=== PATIENT | male | born 1965 ===

== ENCOUNTER 2021-12-07 17:09 | Inpatient (IN) | payer MEDICARE, MEDICAID ==
[~2021-12-07] VITALS: Ht 177.8 cm; Wt 78.5 kg
[2021-12-07 19:08] LABS: COVID AG,FIA SOURCE NASOPHARYNGEAL
[2021-12-07 20:15] LABS: BASOPHILS % (AUTO) 0.6 % (0.0-2.0); EOSINOPHILS % (AUTO) 3.2 % (1.0-6.0); HEMATOCRIT 40.6 % (41-53); HEMOGLOBIN 12.8 g/dL (13.5-17.5); LYMPHOCYTES # (AUTO) 1.1 K/uL (1.0-4.8); LYMPHOCYTES % (AUTO) 13.5 % (22.0-44.0); MEAN CORPUSCULAR HEMOGLOBIN 21.1 pg (26.0-34.0); MEAN CORPUSCULAR HGB CONC 31.5 G/dL (31.0-37.0); MEAN CORPUSCULAR VOLUME 67 fL (80-100); MONOCYTES # (AUTO) 0.4 K/uL (0.1-1.0); MONOCYTES % (AUTO) 5.4 % (2.0-9.0); NEUTROPHILS # (AUTO) 6.1 K/uL (1.8-7.7); NEUTROPHILS % (AUTO) 77.3 % (40.0-70.0); PLATELET COUNT (AUTO) 338 K/uL (150-450); RED BLOOD CELL COUNT(AUTO) 6.06 MIL/uL (4.50-5.90)
[2021-12-07 20:24] LABS: ANION GAP 7 mmol/L (8-16); CALCIUM, TOTAL 8.7 mg/dL (8.8-10.5); CARBON DIOXIDE 28 mmol/L (22-29); CHLORIDE 102 mmol/L (98-107); CREATININE 0.75 mg/dL (0.60-1.30); GLUCOSE,RANDOM 83 mg/dL (70-110); POTASSIUM 3.7 mmol/L (3.5-5.1); SODIUM SERUM 137 mmol/L (136-145); UREA NITROGEN, BLOOD 20 mg/dL (7-18)
[2021-12-07 20:26] LABS: GLOMERULAR FILTR. RATE CALC > 60 mL/min (>60)
[2021-12-07 20:28] LABS: PLATELET MORPHOLOGY COMMENT LARGE PLTS PRESENT
[2021-12-07 20:32] LABS: ALANINE AMINOTRANSFERASE 57 U/L (12-78); ALKALINE PHOSPHATASE 58 U/L (46-116); ASPARTATE AMINOTRANSFERASE 40 U/L (15-37); BILIRUBIN,TOTAL 0.4 mg/dL (0.1-1.0); TOTAL PROTEIN, SERUM 7.4 g/dL (6.4-8.2)
[2021-12-07] MEDS ORDERED: ZOLPIDEM TARTRATE 10 MG TABLET PO PRN (21:30)
[2021-12-07 23:16] LABS: APPEARANCE,URINE CLEAR (CLEAR); BILIRUBIN,URINE NEGATIVE (NEGATIVE); GLUCOSE, URINE (UA) NEGATIVE (NEGATIVE); KETONES,URINE NEGATIVE (NEGATIVE); LEUKOCYTE ESTERASE ,URINE NEGATIVE (NEGATIVE); NITRATE,URINE NEGATIVE (NEGATIVE); OCCULT BLOOD,URINE NEGATIVE (NEGATIVE); PROTEIN,URINE NEGATIVE (NEGATIVE); SPECIFIC GRAVITIY, URINE 1.017 (1.003-1.030); UROBILINOGEN,URINE <=1.0 mg/dL (<=1.0)
[2021-12-07 23:23] LABS: AMPHET/METH SCREEN,URINE NEGATIVE (NEGATIVE); BARBITURATE SCREEN, URINE NEGATIVE (NEGATIVE); BENZODIAZEPINES SCREEN,URINE NEGATIVE (NEGATIVE); CANNABINOID SCREEN,URINE POSITIVE (NEGATIVE); COCAINE SCREEN,URINE NEGATIVE (NEGATIVE); METHADONE SCREEN, URINE NEGATIVE (NEGATIVE); OPIATE SCREEN,URINE NEGATIVE (NEGATIVE)
[2021-12-07 23:24] LABS: PHENCYCLIDINE SCREEN,URINE NEGATIVE (NEGATIVE)
[2021-12-08] MEDS: HALOPERIDOL 5 MG TABLET PO PRN ×2 (01:06→16:02)
[2021-12-08] MEDS: LORazepam 2 MG TABLET PO PRN (01:07)
[2021-12-08 02:09] VITALS: BP 136/79
[2021-12-08 08:19] VITALS: BP 97/58
[2021-12-08 16:34] VITALS: BP 99/71
[2021-12-08] MEDS: PALIPERIDONE 6 MG ER TABLET PO SCH (20:22)
[2021-12-08] MEDS ORDERED: PETROLATUM,WHITE 28 GM JELLY TP PRN (22:00)
[2021-12-08] MEDS ORDERED: BACITRACIN 28 GM OINTMENT TP PRN (22:00)
[2021-12-08] MEDS ORDERED: ACETAMINOPHEN 325 MG TABLET PO PRN (22:00)
[2021-12-08] MEDS ORDERED: MAG HYDROX/AL HYDROX/SIMETH ES 30 ML SUSPENSION UDCUP PO PRN (22:00)
[2021-12-08] MEDS ORDERED: BENZOCAINE/MENTHOL LOZENGE PO PRN (22:00)
[2021-12-08] MEDS ORDERED: MAGNESIUM HYDROXIDE SUSPENSION 30 ML UDCUP PO PRN (22:00)
[2021-12-08] MEDS ORDERED: CloNIDine HCL 0.1 MG TABLET PO PRN (22:00)
[2021-12-08] MEDS ORDERED: DOCUSATE SODIUM 100 MG CAPSULE PO PRN (22:00)
[2021-12-08] MEDS ORDERED: LOPERAMIDE HCL 2 MG CAPSULE PO PRN (22:00)
[2021-12-08] MEDS ORDERED: IBUPROFEN 600 MG TABLET PO PRN (22:00)
[2021-12-08] MEDS ORDERED: ONDANSETRON HCL 4 MG TABLET PO PRN (22:00)
[2021-12-08] MEDS ORDERED: ALBUTEROL SULFATE HFA 90 MCG/PUFF 8 GM INHALER IH PRN (22:00)
[2021-12-08] MEDS ORDERED: OMEPRAZOLE 20 MG CAPSULE PO PRN (22:00)
[2021-12-09 08:21] VITALS: BP 129/72
[2021-12-09] MEDS: HALOPERIDOL 5 MG TABLET PO PRN (14:10)
[2021-12-09] MEDS: LORazepam 2 MG TABLET PO PRN (14:11)
[2021-12-09 16:40] VITALS: BP 122/75
[2021-12-09] MEDS: PALIPERIDONE 6 MG ER TABLET PO SCH (20:23)
[2021-12-10 08:29] VITALS: BP 102/64
[2021-12-10] MEDS: HALOPERIDOL 5 MG TABLET PO PRN ×2 (13:07→20:15)
[2021-12-10] MEDS: LORazepam 2 MG TABLET PO PRN (13:07)
[2021-12-10 17:00] VITALS: BP 110/68
[2021-12-10] MEDS: PALIPERIDONE 6 MG ER TABLET PO SCH (20:15)
[2021-12-11 09:55] VITALS: BP 93/67
[2021-12-11 09:57] VITALS: BP 97/67
[2021-12-11] MEDS: HALOPERIDOL 5 MG TABLET PO PRN (15:59)
[2021-12-11 16:59] VITALS: BP 119/81
[2021-12-11] MEDS: PALIPERIDONE 6 MG ER TABLET PO SCH (20:10)
[2021-12-12 08:43] VITALS: BP 113/74
[2021-12-12 16:00] VITALS: BP 124/69
[2021-12-12] MEDS: PALIPERIDONE 6 MG ER TABLET PO SCH (20:09)
[2021-12-13 08:10] VITALS: BP 101/60
[2021-12-13 16:41] VITALS: BP 104/66
[2021-12-13] MEDS: PALIPERIDONE 6 MG ER TABLET PO SCH (20:08)
[2021-12-14 07:17] LABS: COVID AG,FIA SOURCE NASAL SWAB
[2021-12-14 08:33] VITALS: BP 131/95
[2021-12-14] MEDS: HALOPERIDOL 5 MG TABLET PO PRN ×2 (12:46→17:00)
[2021-12-14] MEDS: LORazepam 2 MG TABLET PO PRN ×2 (12:46→17:00)
[2021-12-14 16:23] VITALS: BP 110/70
[2021-12-14] MEDS: PALIPERIDONE 6 MG ER TABLET PO SCH (20:51)
[2021-12-15] MEDS: LORazepam 2 MG TABLET PO PRN (09:32)
[2021-12-15] MEDS: HALOPERIDOL 5 MG TABLET PO PRN (09:32)
[2021-12-15] MEDS: MULTIVITAMINS WITH MINERALS, THERAPEUTIC TABLET PO SCH (09:32)
[2021-12-15 13:30] VITALS: BP 122/71
[2021-12-15 16:25] VITALS: BP 103/60
[2021-12-15] MEDS: PALIPERIDONE 6 MG ER TABLET PO SCH (20:09)
[2021-12-16] MEDS: LORazepam 2 MG TABLET PO PRN ×2 (07:46→16:26)
[2021-12-16] MEDS: MULTIVITAMINS WITH MINERALS, THERAPEUTIC TABLET PO SCH (07:46)
[2021-12-16] MEDS: HALOPERIDOL 5 MG TABLET PO PRN ×2 (07:46→16:26)
[2021-12-16 08:31] VITALS: BP 93/58
[2021-12-16 16:20] VITALS: BP 120/79
[2021-12-16] MEDS: PALIPERIDONE 6 MG ER TABLET PO SCH (20:10)
[2021-12-17 08:38] VITALS: BP 137/86
[2021-12-17] MEDS: LORazepam 2 MG TABLET PO PRN ×2 (08:52→16:42)
[2021-12-17] MEDS: MULTIVITAMINS WITH MINERALS, THERAPEUTIC TABLET PO SCH (08:52)
[2021-12-17] MEDS: HALOPERIDOL 5 MG TABLET PO PRN ×2 (08:52→16:42)
[2021-12-17 16:37] VITALS: BP 115/76
[2021-12-17] MEDS: PALIPERIDONE 6 MG ER TABLET PO SCH (20:27)
[2021-12-18] MEDS: MULTIVITAMINS WITH MINERALS, THERAPEUTIC TABLET PO SCH (08:18)
[2021-12-18 08:30] VITALS: BP 138/96
[2021-12-18 16:21] VITALS: BP 149/84
[2021-12-18] MEDS: HALOPERIDOL 5 MG TABLET PO PRN (16:43)
[2021-12-18] MEDS: LORazepam 2 MG TABLET PO PRN (16:43)
[2021-12-18] MEDS: PALIPERIDONE 6 MG ER TABLET PO SCH (20:52)
[2021-12-19] MEDS: MULTIVITAMINS WITH MINERALS, THERAPEUTIC TABLET PO SCH (08:12)
[2021-12-19 08:23] VITALS: BP 112/79
[2021-12-19 16:26] VITALS: BP 132/83
[2021-12-19] MEDS: LORazepam 2 MG TABLET PO PRN (16:39)
[2021-12-19] MEDS: HALOPERIDOL 5 MG TABLET PO PRN (16:39)
[2021-12-19] MEDS: PALIPERIDONE 6 MG ER TABLET PO SCH (20:06)
[2021-12-20 08:00] VITALS: BP 99/61
[2021-12-20] MEDS: MULTIVITAMINS WITH MINERALS, THERAPEUTIC TABLET PO SCH (09:11)
[2021-12-20] MEDS: HALOPERIDOL 5 MG TABLET PO PRN (16:20)
[2021-12-20 16:47] VITALS: BP 120/84
[2021-12-20] MEDS: PALIPERIDONE 6 MG ER TABLET PO SCH (20:04)
[2021-12-21 06:33] LABS: COVID AG,FIA SOURCE NASAL SWAB
[2021-12-21 08:30] VITALS: BP 118/75
[2021-12-21] MEDS: MULTIVITAMINS WITH MINERALS, THERAPEUTIC TABLET PO SCH (09:38)
[2021-12-21] MEDS: HALOPERIDOL 5 MG TABLET PO PRN (16:38)
[2021-12-21 17:01] VITALS: BP 116/81
[2021-12-21] MEDS: PALIPERIDONE 6 MG ER TABLET PO SCH (20:15)
[2021-12-22] MEDS: MULTIVITAMINS WITH MINERALS, THERAPEUTIC TABLET PO SCH (08:20)
[2021-12-22 09:00] VITALS: BP 103/55
[2021-12-22] MEDS ORDERED: PALI6TAB15 PO (09:41)
== END 2021-12-22 12:42 | disposition home or self-care (01) | DRG 885 ==
LOC: EMS 17:11 → EDBD 21:26 → 3EC 21:26
PROVIDERS: ADMIT Psychiatry & Neurology Psychiatry; ATTEND Psychiatry & Neurology Psychiatry
DX: F25.9 Schizoaffective disorder, unspecified (principal); D50.9 Iron deficiency anemia, unspecified; F41.9 Anxiety disorder, unspecified; G47.00 Insomnia, unspecified; F19.10 Other psychoactive substance abuse, uncomplicated; I10 Essential (primary) hypertension; Z20.822 Contact with and (suspected) exposure to COVID-19; K21.9 Gastro-esophageal reflux disease without esophagitis; Z72.0 Tobacco use
CPT/HCPCS: 80053; 81003; 85025; 99285; G0480